=== PATIENT | male | born 1945 ===

== ENCOUNTER 2022-10-02 09:03 | Emergency (ER) | payer MEDICARE, MEDICAID ==
[2022-10-02] MEDS ORDERED: Sodium Chloride 0.9% 10 ML Syringe FLUSH PRN (09:17)
[2022-10-02 09:54] LABS: ESTIMATED GFR 38 mL/min (>60)
[2022-10-02] MEDS ORDERED: Sodium Chloride 0.9% 1,000 ML IV SCH ×2 (10:00→12:45)
[2022-10-02] MEDS ORDERED: Glucagon,Human Recombinant 1 MG Vial IM PRN ×2 (10:01→12:22)
[2022-10-02] MEDS ORDERED: 50% Dextrose in Water 50 ML Syringe IVPUSH PRN ×2 (10:01→12:22)
[2022-10-02] MEDS ORDERED: Insulin Lispro 100 Unit/ML 3 ML KwikPen SUBCUT STA (10:01)
[2022-10-02] MEDS ORDERED: Insulin Regular, Human 100 Units/ML 3 ML Vial IV ONE (12:40)
[2022-10-02] MEDS ORDERED: Insulin Lispro 100 Unit/ML 3 ML KwikPen SUBCUT SCH (18:00)
== END 2022-10-02 15:40 ==
LOC: FB.ED 09:03
DX: G93.40 Encephalopathy, unspecified (principal); E11.65 Type 2 diabetes mellitus with hyperglycemia; E86.0 Dehydration; I10 Essential (primary) hypertension; K21.9 Gastro-esophageal reflux disease without esophagitis; Z79.899 Other long term (current) drug therapy; Z88.8 Allergy status to other drugs, medicaments and biological substances; Z79.4 Long term (current) use of insulin
CPT/HCPCS: 36415; 70450; 71045; 80053; 81001; 82947; 84484; 85025; 85610; 85730; 93005; 96360; 96361; 99285; J1815; J7030